=== PATIENT | male | born 1990 | race African-American/Black ===

== ENCOUNTER 2022-09-11 18:26 | Emergency (ER) | payer SELFPAY ==
[~2022-09-11] VITALS: Ht 177.8 cm; Wt 95.3 kg
[2022-09-11] MEDS ORDERED: TORADOL IM STA (18:39)
[2022-09-11] MEDS ORDERED: TORADOL ONE (18:42)
[2022-09-11 18:46] VITALS: BP 137/98
--- NOTE | 2022-09-11 19:16 | DIREP ---
PROCEDURE:XRAY SHOULDER MIN 2 VWS-LT COMPARISON:None. INDICATIONS:pain FINDINGS: Two views of the left shoulder. No fracture or dislocation identified. Acromioclavicular and coracoclavicular distances are not widened. No radiopaque foreign body. CONCLUSION: 1. Left shoulder, unremarkable. Dictated by: Lisa Barber MD on 09/11/2022 at 07:10 PM
--- NOTE | 2022-09-11 19:28 | ER.PDOC ---
General Chief Complaint: Extremities Stated Complaint: L SHOULDER PAIN Time seen by MD: 19:00 Source: patient Exam Limitations: intoxication History of Present Illness Initial Comments Patient is a 32-year-old male with no reported past sickle history comes in with left shoulder pain after injuring it in an uncertain way over the past day. Patient appears to be intoxicated on marijuana but states his left shoulder hurts it is sore in nature made worse with movement better with rest. He states is mostly deep within the shoulder denies any other injuries or concerns at this time. Past Medical History Medical History: no pertinent history Family History Significant Family History: no pertinent family hx Social History Smoking: non-smoker Alcohol Use: heavy Drug Use: marijuana Reviewed Nursing Reviewed: Vital Signs, Abn. Noted, Nursing Assessment Review of Systems Constitutional: no symptoms reported EENTM: no symptoms reported Respiratory: no symptoms reported Cardiovascular: no symptoms reported Gastrointestinal: no symptoms reported Genitourinary: no symptoms reported Musculoskeletal: joint pain Skin: no symptoms reported Psychiatric/Neurological: no symptoms reported Physical Exam General Appearance: Alert, No Apparent Distress Shoulder: full ROM, tenderness Upper Extremities: uninjuried below shoulder Neuro: sensation nml, motor nml Vascular: no vascular compromise Skin: warm/dry Head/ENT: nml inspection, pharynx nml Neck/Back: non-tender, nml inspection, painless ROM Respiratory: chest non-tender, breath sounds nml CVS: reg rate & rhythm, heart sounds nml Abdomen: non-tender, no organomegaly Results/Orders Results/Orders Orders - MIRIAM JONES MD Ketorolac Tromethamine (Toradol) (09/11/22 18:39) Xr Shoulder Lt 2v (09/11/22 18:40) Vital Signs Date Time Temp Pulse Resp B/P (MAP) Pulse Ox O2 Delivery O2 Flow Rate FiO2 09/11/22 18:46 98.9 84 16 137/98 (111) 96 Room Air* 0 21 09/11/22 18:46 98.9 84 18 09/11/22 18:46 98.9 84 18 96 Administered Medications Medications (Trade) Dose Ordered Sig/Lv Route PRN Reason Start Time Stop Time Status Last Admin Dose Admin Ketorolac Tromethamine (Toradol) 15 mg OT STAT IM 09/11/22 18:39 09/11/22 18:40 DC 09/11/22 18:45 15 MG Progress Progress Patient here with left shoulder pain after injuring it we will obtain x-rays rule out bony abnormality will provide pain control. 1926reassessmentpatient states he feels better will discharge with Robaxin Lidoderm patches ketorolac and Ortho and primary care follow-up he voiced understanding when to follow-up and when to return to the ER. ER DEPART Departure Time of Disposition: 19:27 Disposition: 01 HOME / SELF CARE / HOMELESS Impression: Primary Impression: Shoulder pain Condition: Improved Patient Instructions: Shoulder Pain Referrals: PCP,UNKNOWN (PCP) PRIMARY CARE PROVIDER Additional Instructions: Follow-up with your primary care provider within a week. If you have any new persistent or worsening symptoms or concern seek medical attention. You also need to follow-up with orthopedic surgeon to see any like Dr. Reece here in [facility] to call [phone] to set up an appointment. Please take medications as prescribed Duration or Time Spent with Pa: 30 Problem Qualifiers Primary Impression: Shoulder pain Chronicity: acute Laterality: left Qualified Codes: M25.512 - Pain in left shoulder MIRIAM JONES MD Sep 11, 2022 19:28
[2022-09-11 19:31] VITALS: BP 143/74
== END 2022-09-11 19:36 | disposition home or self-care (01) ==
LOC: ER 18:26
DX: M25.512 Pain in left shoulder (principal); F12.90 Cannabis use, unspecified, uncomplicated
CPT/HCPCS: 99283; 96372; 73030; J1885